=== PATIENT | male | born 1990 | race African-American/Black ===

== ENCOUNTER 2022-07-26 16:53 | Emergency (ER) | payer OTHER ==
[~2022-07-26] VITALS: Ht 175.3 cm; Wt 77.1 kg
[2022-07-26] MEDS ORDERED: ASPIRIN 81 MG CHEW (CHILDREN'S ASA) PO ONE (17:15)
--- NOTE | 2022-07-26 17:16 | ED Chest Pain ---
General Chief Complaint: Chest Pain Stated Complaint: CHEST PAINS Nursing Triage Note: PT AMB TO [facility] 6 WITH COMPLAINT OF STABBING CHEST PAIN. STATES STARTED THIS MORNING AND IS CONSTANT. PT STATES HE FEELS SOA WITH PAIN. Source: patient Exam Limitations: no limitations (EASTON HINES DO) History of Present Illness Date Seen by Provider: Jul 26, 2022 Time Seen by Provider: 17:05 Initial Comments 31-year-old male presents the emergency department today for chest pain. Symptoms started this afternoon about 3:00 described as sharp stabbing mid central without radiation. No aggravating or alleviating factors and it has been constant since onset. He does not really recall what he was doing at the onset. He has never had similar pains in the past. Denies history of high blood pressure high cholesterol diabetes. He does not take any medications on a daily basis and has no history of coronary artery disease. No recent trauma, surgery, travel. No unilateral lower extremity pain or swelling. No self or family history of DVT, PE. He denies any recent illness including fevers chills cough abdominal pain, changes in bowel or bladder habits. (EASTON HINES DO) Allergies and Home Medications Allergies Coded Allergies: No Known Drug Allergies (Unverified , 07/26/22) Patient Home Medication List Home Medication List Reviewed: Yes (EASTON HINES DO) Review of Systems Review of Systems Constitutional: no symptoms reported EENTM: No Symptoms Reported Respiratory: Shortness of Air Cardiovascular: Chest Pain Gastrointestinal: No Symptoms Reported Genitourinary: No Symptoms Reported Musculoskeletal: no symptoms reported Skin: no symptoms reported Psychiatric/Neurological: No Symptoms Reported Endocrine: No Symptoms Reported Hematologic/Lymphatic: No Symptoms Reported (EASTON HINES DO) Past Tkhkddq-Ytwaye-Voyfvk Hx Patient Social History Tobacco Use?: Yes Tobacco type used: Cigarettes Smoking Status: Current Everyday Smoker Use of E-Cig and/or Vaping dev: No Substance use?: No Alcohol Use?: No Pt feels they are or have been: No (EASTON HINES DO) Family Medical History Reviewed Nursing Family Hx (EASTON HINES DO) No Pertinent Family Hx (EASTON HINES DO) Physical Exam Vital Signs Vital Signs - First Documented 07/26/22 16:58 Temp 36.0 Pulse 103 Resp 14 B/P (MAP) 135/88 (104) Pulse Ox 98 O2 Delivery Room Air (COLE JUAREZ MD) Vital Signs Capillary Refill : Less Than 3 Seconds (EASTON HINES DO) Height, Weight, BMI Height: '" Weight: lbs. oz. kg; 25.00 BMI Method: General Appearance: No Apparent Distress, WD/WN HEENT: Normal ENT Inspection, Pharynx Normal Neck: Normal Inspection, Non Tender, Supple Respiratory: Chest Non Tender, Lungs Clear, Normal Breath Sounds, No Accessory Muscle Use, No Respiratory Distress, Other (Slight increased work of breathing, hyperventilation) Cardiovascular: No Edema, No Murmur, Normal Peripheral Pulses, Tachycardia Gastrointestinal: Normal Bowel Sounds, No Organomegaly, No Pulsatile Mass, Non Tender, Soft Extremity: Normal Capillary Refill, Normal Inspection, Normal Range of Motion, Non Tender, No Calf Tenderness, No Pedal Edema Neurologic/Psychiatric: Alert, Oriented x3, No Motor/Sensory Deficits Skin: Normal Color, Warm/Dry (EASTON HINES DO) Progress/Results/Core Measures Results/Orders Lab Results Laboratory Tests Test 07/26/22 17:03 07/26/22 19:09 Range/Units White Blood Count 6.1 4.3-11.0 10^3/uL Red Blood Count 5.46 4.30-5.52 10^6/uL Hemoglobin 15.6 13.3-17.7 g/dL Hematocrit 46 40-54 % Mean Corpuscular Volume 83 80-99 fL Mean Corpuscular Hemoglobin 29 25-34 pg Mean Corpuscular Hemoglobin Concent 34 32-36 g/dL Red Cell Distribution Width 12.0 10.0-14.5 % Platelet Count 350 130-400 10^3/uL Mean Platelet Volume 10.0 9.0-12.2 fL Immature Granulocyte % (Auto) 0 % Neutrophils (%) (Auto) 35 L 42-75 % Lymphocytes (%) (Auto) 52 H 12-44 % Monocytes (%) (Auto) 10 0-12 % Eosinophils (%) (Auto) 2 0-10 % Basophils (%) (Auto) 1 0-10 % Neutrophils # (Auto) 2.2 1.8-7.8 10^3/uL Lymphocytes # (Auto) 3.2 1.0-4.0 10^3/uL Monocytes # (Auto) 0.6 0.0-1.0 10^3/uL Eosinophils # (Auto) 0.1 0.0-0.3 10^3/uL Basophils # (Auto) 0.0 0.0-0.1 10^3/uL Immature Granulocyte # (Auto) 0.0 0.0-0.1 10^3/uL Erythrocyte Sedimentation Rate 2 0-15 MM/HR Prothrombin Time 12.9 12.2-14.7 SEC INR Comment 0.9 0.8-1.4 Activated Partial Thromboplast Time 29 24-35 SEC Sodium Level 138 135-145 MMOL/L Potassium Level 3.7 3.6-5.0 MMOL/L Chloride Level 103 98-107 MMOL/L Carbon Dioxide Level 25 21-32 MMOL/L Anion Gap 10 5-14 MMOL/L Blood Urea Nitrogen 22 H 7-18 MG/DL Creatinine 1.15 0.60-1.30 MG/DL Estimat Glomerular Filtration Rate 86 BUN/Creatinine Ratio 19 Glucose Level 104 70-105 MG/DL Calcium Level 9.3 8.5-10.1 MG/DL Corrected Calcium 9.1 8.5-10.1 MG/DL Magnesium Level 2.1 1.6-2.4 MG/DL Total Bilirubin 0.7 0.1-1.0 MG/DL Aspartate Amino Transf (AST/SGOT) 44 H 5-34 U/L Alanine Aminotransferase (ALT/SGPT) 28 0-55 U/L Alkaline Phosphatase 73 40-136 U/L Troponin I < 0.028 < 0.028 <0.028 NG/ML Total Protein 7.4 6.4-8.2 GM/DL Albumin 4.3 3.2-4.5 GM/DL C-Reactive Protein High Sensitivity 0.37 0.00-0.50 MG/DL (COLE JUAREZ MD) My Orders Orders - COLE JUAREZ MD Hs C Reactive Protein (07/26/22 18:24) Erythrocyte Sedimentation Rate (07/26/22 18:24) Troponin I Amairani (07/26/22 19:05) (COLE JUAREZ MD) Medications Given in ED Current Medications Medications Dose Ordered Sig/Timothy Route Start Time Stop Time Status Last Admin Dose Admin Aspirin 324 mg ONCE ONCE PO 07/26/22 17:15 07/26/22 17:16 DC 07/26/22 17:15 324 MG Iohexol 100 ml ONCE ONCE IV 07/26/22 18:00 07/26/22 18:01 DC 07/26/22 18:09 75 ML Ketorolac Tromethamine 15 mg ONCE ONCE IVP 07/26/22 17:30 07/26/22 17:31 DC 07/26/22 17:29 15 MG Sodium Chloride 100 ml ONCE ONCE IV 07/26/22 18:00 07/26/22 18:01 DC 07/26/22 18:09 80 ML (COLE JUAREZ MD) Vital Signs/I&O 07/26/22 07/26/22 16:58 20:49 Temp 36.0 36.0 Pulse 103 91 Resp 14 14 B/P (MAP) 135/88 (104) 135/88 Pulse Ox 98 98 O2 Delivery Room Air Room Air (COLE JUAREZ MD) Blood Pressure Mean: 104 Progress Progress Note #1: Time: 19:12 Progress Note Care of this gentleman was assumed from Dr. Hines at shift change. Labs including CBC, CMP, and troponin were reviewed. EKGs were reviewed and discussed with Dr. Hines. His discussion with Dr. Turcios, corporate accountant on- call, was also discussed. Patient likely has pericarditis. CT angiogram was pending at the time of shift change. CTA was viewed by me and report was reviewed. There were no acute abnormalities. Specifically there was no pericardial effusion, infiltrate, or pulmonary embolus noted by either me or the radiologist. Patient is feeling much improved after receiving NSAID therapy. We are repeating a troponin and disposition will be pending that result. Patient also had me evaluate a skin lesion on his left thigh that has recently developed. It is a slightly raised firm pigmented lesion within the skin measuring approximately 1 cm. It has the appearance of a dermatofibroma. He also noted some recent tender lymphadenopathy in the left groin. He had subcentimeter lymph nodes palpable in the left inguinal region. There was no bulging to suggest a hernia which was his concern. I suspect he has a viral illness causing both the chest pain/pericarditis and his lymphadenopathy. I have advised careful watchful waiting in regard to the lymphadenopathy. I have advised follow-up with a primary care provider for monitoring and/or excision of the skin lesion. I did offer her testing for influenza and COVID-19. Patient declined as he does not have any other symptoms such as cough, fever, chills, myalgia, sore throat, headache, etc. Progress Note #2: Progress Note Repeat troponin was negative. ESR and CRP were also unremarkable. Still f eeling relatively well after evaluation was complete. I discussed the case again with Dr. Turcios, corporate accountant on-call. He is agreeable to a discharge with scheduled ibuprofen therapy for a possible pericarditis as well as PPI for GI protection. Discharge instructions were reviewed with patient. (COLE JUAREZ MD) Initial ECG Impression Time: 17:05 Comment Sinus tachycardia 103 bpm. Normal intervals. Normal axis. There is upward convexity of the ST segments in 2, slightly and aVF as well as in V3 V4 V5 lesser and V6. I spoke with Dr. Turcios about these findings. He states he would not call this STEMI at this time we will treat the patient's pain and wait for troponin levels to come back. EKG : EKG Time: 17:38 Comment Sinus rhythm 85 bpm. Normal intervals. Normal axis. ST elevation in lead II, aVF, V1. There is improved. Spoke with ST segments in the precordial leads throughout only slight elevation. (EASTON HINES DO) Diagnostic Imaging Diagonstic Imaging: CT Plain Films/CT/US/NM/MRI: chest Comments CT angiogram reviewed by me. No acute pathology was appreciated. There were no infiltrates, pulmonary emboli, or pericardial effusions appreciated by this prov ider. Radiologist report also reviewed as below: NAME: JESICA PEARSON [facility] REC#: [id number] PT STATUS: REG ER : 1990 PHYSICIAN: EASTON HNIES DO ADMIT DATE: 07/26/22/ER Draft Date of Exam:07/26/22 CT ANGIO CHEST W INDICATION: Chest pain, shortness of breath. TECHNIQUE: Multiple contiguous axial images were obtained through the chest after uneventful bolus administration of intravenous contrast. 3D reconstructed CTA MIP acquisitions were also performed. Auto Exposure Controls were utilized during the CT exam to meet ALARA standards for radiation dose reduction. COMPARISON: There is no previous study for comparison. FINDINGS: The pulmonary parenchymal vessels appear well opacified with no CT evidence of pulmonary emboli. The thoracic aorta shows no evidence of dissection or aneurysm. Great vessel origins are unremarkable. There is no pleural or pericardial fluid. There is no enlarged mediastinal or hilar node. Visualized portions of the upper abdomen are unremarkable. Lung parenchymal windows show no pulmonary parenchymal infiltrates or nodules. IMPRESSION: Negative CTA of the chest. Dictated on workstation # [id number] Dict: 07/26/22 1823 Trans: 07/26/22 183 PJE [id number] Interpreted by: ADRIANNE PETERSEN MD Diagonstic Imaging: Xray Plain Films/CT/US/NM/MRI: chest Comments NAME: JESICA PEARSON [facility] REC#: [id number] PT STATUS: REG ER : 1990 PHYSICIAN: EASTON HINES DO ADMIT DATE: 07/26/22/ER Signed Date of Exam:07/26/22 CHEST 1 VIEW, AP/PA ONLY INDICATION: Chest pain. EXAMINATION: Frontal chest was obtained at 5:10 p.m. Heart and mediastinal silhouette are normal in appearance. The lungs are clear. There is no pneumothorax or pleural fluid. IMPRESSION: Negative chest. Dictated by: Dictated on workstation # [id number] Dict: 07/26/221722 Trans: 07/26/221738 PJE [id number] Interpreted by: ADRIANNE PETERSEN MD Electronically signed by: ADRIANNE PETERSEN MD 07/26/221738 (COLE JUAREZ MD) Departure Communication (Admissions) Patient has interesting appearance to his EKG. Convexity of the ST segments in V3 V4 V5 without any real true ST elevation or J-point elevation. This is lesser so in 2 and aVF as well. I spoke with Dr. Turcios upon getting the EKG immediately and he reviewed it with him. He states he would not call this a STEMI. Concern for possible pericarditis and wishes to wait for the troponin level before proceeding with any further inventions. Does recommend possible IV Toradol to see if this might help given possible pericarditis. Patient has been given aspirin. He is otherwise hemodynamically stable outside of some mild tachycardia. 1738: Repeat EKG with continued diffuse mild ST elevations. More prominently in 2 and aVF, improved in the precordial leads. Also some slight elevation in lead I this time. He is improving after IV Toradol. He is on aspirin. Findings could be consistent with pericarditis. He does state that there is a pleuritic component to his chest pain. I reviewed his CT angiography developed pulmonary embolus. (EASTON HINES DO) Impression Primary Impression: Acute pericarditis Qualified Codes: I30.9 - Acute pericarditis, unspecified Additional Impressions: Atypical chest pain Skin lesion of left lower extremity Acute inguinal lymphadenitis Disposition: HOME, SELF-CARE Condition: Improved Departure-Patient Inst. Decision time for Depature: 20:15 (COLE JUAREZ MD) Referrals: NO,LOCAL PHYSICIAN (PCP) Primary Care Physician CRUZ TURCIOS MD FACP FACC CCDS Patient Instructions: Lymphadenitis, Pericarditis in Adults Add. Discharge Instructions: Your chest pain may be due to a condition called pericarditis. The primary treatment for this is anti-inflammatory medication. Take ibuprofen 600 mg every 6 hours for 4 weeks. Along with this take omeprazole 20 mg twice daily to protect your stomach while you are on ibuprofen. Omeprazole may be purchased [id number]. Take ibuprofen with food or milk to avoid stomach irritation. You may add Tylenol (acetaminophen) up to 1000 mg every 6 hours as needed for additional pain relief. The skin lesion on your leg needs to be followed and evaluated by a primary care provider. It either requires careful monitoring or excision for pathology review. Please make an appointment with her primary care provider as soon as possible to begin this process. The lymph nodes in your left groin are likely related to a viral illness that is also contributing to the pericarditis. The swelling and tenderness of these lymph nodes should dissipate within the next couple of weeks. If the lymph nodes worsen or do not resolve within the next 2 weeks, please also follow-up with your primary care provider for further evaluation of this specific problem. Please call Dr. Turcios's office on Thursday to schedule follow-up. See the contact information below. Return to the emergency room if you have worsening symptoms despite following these instructions. Bring these discharge instructions with you to your follow-up appointments. All discharge instructions reviewed with patient and/or family. Voiced understanding. Work/School Note: Work Release Form Date Seen in the Emergency Department: Jul 26, 2022 Return to Work: Jul 27, 2022 Other Restrictions Listed Below: Stop and rest if work causes significant pain. Restrictions: May need to take Ibuprofen and/or Tylenol at work. Copy Copies To 1: CRUZ TURCIOS MD FACP FAC CCDS EASTON HINES DO Jul 26, 2022 17:16 COLE JUAREZ MD Jul 26, 2022 18:45
[2022-07-26 17:18] LABS: BASOPHILS % (AUTO) 1 % (0-10); EOSINOPHILS # (AUTO) 0.1 10^3/uL (0.0-0.3); EOSINOPHILS % (AUTO) 2 % (0-10); HEMATOCRIT 46 % (40-54); HEMOGLOBIN 15.6 g/dL (13.3-17.7); LYMPHOCYTES # (AUTO) 3.2 10^3/uL (1.0-4.0); LYMPHOCYTES % (AUTO) 52 % (12-44); MEAN CORPUSCULAR HEMOGLOBIN 29 pg (25-34); MEAN CORPUSCULAR HGB CONC 34 g/dL (32-36); MEAN CORPUSCULAR VOLUME 83 fL (80-99); MONOCYTES # (AUTO) 0.6 10^3/uL (0.0-1.0); MONOCYTES % (AUTO) 10 % (0-12); NEUTROPHILS # (AUTO) 2.2 10^3/uL (1.8-7.8); NEUTROPHILS % (AUTO) 35 % (42-75); PLATELET COUNT 350 10^3/uL (130-400); WHITE BLOOD COUNT 6.1 10^3/uL (4.3-11.0)
[2022-07-26 17:23] LABS: INR 0.9 (0.8-1.4); PROTHROMBIN TIME PATIENT 12.9 SEC (12.2-14.7)
[2022-07-26 17:25] LABS: ALBUMIN 4.3 GM/DL (3.2-4.5)
[2022-07-26 17:26] LABS: POTASSIUM 3.7 MMOL/L (3.6-5.0)
--- NOTE | 2022-07-26 17:26 | Diagnostic Imaging Report ---
INDICATION: Chest pain. EXAMINATION: Frontal chest was obtained at 5:10 p.m. Heart and mediastinal silhouette are normal in appearance. The lungs are clear. There is no pneumothorax or pleural fluid. IMPRESSION: Negative chest. Dictated by: Dictated on workstation # [id number]
[2022-07-26 17:27] LABS: CALCIUM 9.3 MG/DL (8.5-10.1)
[2022-07-26 17:28] LABS: TOTAL PROTEIN 7.4 GM/DL (6.4-8.2)
[2022-07-26 17:30] LABS: BILIRUBIN,TOTAL 0.7 MG/DL (0.1-1.0)
[2022-07-26] MEDS ORDERED: KETOROLAC 15 MG/ML VIAL IVP ONE (17:30)
[2022-07-26 17:32] LABS: CREATININE SERUM 1.15 MG/DL (0.60-1.30)
[2022-07-26 17:35] LABS: MAGNESIUM 2.1 MG/DL (1.6-2.4)
[2022-07-26] MEDS ORDERED: IOHEXOL 350 MG/ML 100 ML (OMNIPAQUE 350) VIAL IV ONE (18:00)
[2022-07-26] MEDS ORDERED: NS 100 ML (IVPB) BAG IV ONE (18:00)
--- NOTE | 2022-07-26 18:32 | Diagnostic Imaging Report ---
INDICATION: Chest pain, shortness of breath. TECHNIQUE: Multiple contiguous axial images were obtained through the chest after uneventful bolus administration of intravenous contrast. 3D reconstructed CTA MIP acquisitions were also performed. Auto Exposure Controls were utilized during the CT exam to meet ALARA standards for radiation dose reduction. COMPARISON: There is no previous study for comparison. FINDINGS: The pulmonary parenchymal vessels appear well opacified with no CT evidence of pulmonary emboli. The thoracic aorta shows no evidence of dissection or aneurysm. Great vessel origins are unremarkable. There is no pleural or pericardial fluid. There is no enlarged mediastinal or hilar node. Visualized portions of the upper abdomen are unremarkable. Lung parenchymal windows show no pulmonary parenchymal infiltrates or nodules. IMPRESSION: Negative CTA of the chest. Dictated by: Dictated on workstation # [id number]
[2022-07-26 20:49] VITALS: BP 135/88
== END 2022-07-26 20:50 | disposition home or self-care (01) ==
LOC: ER 16:57
DX: I30.9 Acute pericarditis, unspecified (principal); L04.1 Acute lymphadenitis of trunk; I26.99 Other pulmonary embolism without acute cor pulmonale; L98.9 Disorder of the skin and subcutaneous tissue, unspecified; F17.210 Nicotine dependence, cigarettes, uncomplicated
CPT/HCPCS: 36415; 71045; 71275; 80053; 83735; 84484; 85025; 85610; 85652; 85730; 86141; 93005